=== PATIENT | male | born 1955 | race Caucasian/White ===

== ENCOUNTER 2022-03-16 21:31 | Inpatient (IN) | payer OTHER ==
[~2022-03-16] VITALS: Ht 167.6 cm; Wt 46.3 kg
[2022-03-16 22:02] VITALS: BP_SYST 171
[2022-03-17] LABS: BASOPHILS % (AUTO) 0.3 % (0.0-2.0); EOSINOPHILS # (AUTO) 0.1 K/uL (0.0-0.4); EOSINOPHILS % (AUTO) 1.4 % (0.0-4.0); HEMOGLOBIN 9.9 g/dL (14.0-18.0); LYMPHOCYTES # (AUTO) 0.8 K/uL (1.0-5.5); LYMPHOCYTES % (AUTO) 11.3 % (20.5-51.5); MEAN CORPUSCULAR HEMOGLOBIN 33 pg (27-31); MEAN CORPUSCULAR HGB CONC 35 % (32-36); MEAN CORPUSCULAR VOLUME 94 fL (79.0-98.0); MONOCYTES # (AUTO) 0.7 K/uL (0.0-1.0); MONOCYTES % (AUTO) 10.5 % (1.7-9.3); NEUTROPHILS # (AUTO) 5.2 K/uL (1.8-7.7); NEUTROPHILS % (AUTO) 76.5 % (40.0-70.0); PLATELET COUNT (AUTO) 173 K/uL (130-430); RED BLOOD CELL COUNT(AUTO) 2.99 MIL/uL (4.2-6.2); RED CELL DISTRIBUTION WIDTH 14.2 % (9.0-15.0); WHITE BLOOD COUNT (AUTO) 6.8 K/uL (4.8-10.8)
--- NOTE | 2022-03-17 01:24 | NUR ---
Patient to ER bed sim 1 to gown for evaluation. Side rails up. Report given to Melissa ORTIZ.
--- NOTE | 2022-03-17 01:55 | NUR ---
COVID 19 SWAB TEST AND INFLUENZA SWAB TEST ADMINISTERED BY CHARBEL FIERRO AND SAMPLES SENT TO LAB FOR ANALYSIS
--- NOTE | 2022-03-17 02:15 | NUR ---
Patient has AV shunt in upper right chest area and a new AV shunt was placed on left AC x8days ago. Patient arrived with 22G IV in right AC with 1000 mL NS running TKO. Nad noted at this time.
--- NOTE | 2022-03-17 02:15 | NUR ---
First contact with patient at this time. Patient A/Ox4, GCS 15, VSS, ambulatory, resp even and unlabored. Patient reports to ED from home with c/o syncope x1 and hypotension s/p dialysis treatment. Patient has AV shunt in right shoulder and a new one AV shunt was placed on left AC x8 days ago. Patient states "After I went to dialysis I went home to eat and I dont know if I got up too fast or what happend but I think I fainted." Patient is a fluent Ukrainian speaker and understands Montenegrin but speaks few words in Montenegrin. Patient lying in bed with safety precautions in place. ER MD Chow notified
[2022-03-17 02:19] LABS: CHLORIDE 97 mmol/L (98-107)
[2022-03-17 02:20] LABS: ANION GAP 8 (5-15); CALCIUM 9.7 mg/dL (8.4-11.0); CREATININE 5.18 mg/dL (0.55-1.30); GFR AFRICAN AMERICAN 14 mL/min (>90); GLUCOSE 103 mg/dL (70-99); TOTAL BILIRUBIN 0.4 mg/dL (0.0-1.0); UREA NITROGEN, BLOOD 40 mg/dL (8-21)
--- NOTE | 2022-03-17 02:20 | NUR ---
KIKI Chow at bedside.
[2022-03-17 02:21] LABS: ALANINE AMINOTRANSFERASE 28 U/L (12-78); ALBUMIN 2.8 g/dL (3.4-4.8); ASPARTATE AMINOTRANSFERASE 43 U/L (10-37)
--- NOTE | 2022-03-17 02:43 | NUR ---
TROPONIN = 13,014. DR. HANNAH AWARE. Addendum: 03/17/22 at 0552 by SDEDVT Patient Troponin level is 1,314 verified per Fannie from Lab; ER MD Chow made aware.
--- NOTE | 2022-03-17 03:00 | NUR ---
Patient sleeping in bed with safety precautions in place.
--- NOTE | 2022-03-17 05:28 | NUR ---
Received call from Kendra nurse pillowcase cleaner from [employer]. Nurse manager transport wanted an update on patient.
--- NOTE | 2022-03-17 05:31 | NUR ---
Admit bed requested Patient will be admitted to care of Dr.A. AGUILLON. Admitted to TELE unit. Diagnosis HYPOTENSION,ELEVATED TROP Inpatient (Yes or No) YES Observation (Yes or No) NO Orientation concerns or request close to nursing station (Yes or No) NO Covid Status POSITIVE On vent or bipap NO Isolation requirements NO Needs a sitter NO From Home (Yes or if No enter name of facility) YES Requires Dialysis (Yes or No) N Med Rec Completed (Yes of No) PENDING
--- NOTE | 2022-03-17 05:50 | NUR ---
Medication list provided by patient.
[2022-03-17] MEDS ORDERED: AMLO5TAB4 PO (06:04)
[2022-03-17] MEDS ORDERED: METO25TA6 PO (06:04)
--- NOTE | 2022-03-17 06:05 | NUR ---
Patient resting comfortably in bed with safety precautions in place.
--- NOTE | 2022-03-17 07:17 | NUR ---
Report given to DIANA Beyer to assume care of patient at this time.
--- NOTE | 2022-03-17 07:24 | NUR ---
Received report from DIANA Torres. Patient appears in no acute distress at this time, VSS. Care to be given as ordered by provider.
--- NOTE | 2022-03-17 13:55 | NUR ---
patient assisted to the bathroom.
--- NOTE | 2022-03-17 13:59 | NUR ---
Patient will be admitted to care of Dr. Cross. Admitted to MST unit. Will go to room 133A. Belongings list completed. Complete and up to date summary report printed. SBAR report to be given at bedside with opportunity for questions. Addendum: 03/17/22 at 1829 by [email or web address] Room 134B
--- NOTE | 2022-03-17 14:00 | NUR ---
RECEIVED BEDSIDE SBAR FROM ER NURSE , PATIENT STABLE NO DISTRESS CALL LIGHT IN REACH BED AT LOW POSITION WILL CONT TO MONITOR PATEN PER ORDERS
[2022-03-17 14:21] VITALS: BP_SYST 157
[2022-03-17] MEDS ORDERED: amLODIPine BESYLATE 5 MG TABLET PO ONE (17:30)
[2022-03-17] MEDS ORDERED: METOPROLOL SUCCINATE 25 MG TAB.SR.24H (TOPROL XL) PO ONE (17:30)
--- NOTE | 2022-03-17 18:47 | NUR ---
CLOSING NOTES PATIENT REMAINS STABLE NO DISTRESS, CALL LIGHT IN REACH BED AT LOW POSITION WILL GIVE PM ADJUNCT PHILOSOPHY FACULTY NURSE BEDSIDE SBAR
--- NOTE | 2022-03-17 19:30 | NUR ---
Received report from AM shift ROTARY SCREEN PRINTING MACHINE OPERATOR, and assumed patient care.
[2022-03-17 20:00] VITALS: BP_SYST 157
--- NOTE | 2022-03-17 20:40 | NUR ---
Educated the patient about the upcoming plan of care, the use of call light, and patient understood the teaching and has no further questions noted at the moment. Will reinforce if needed throughout the shift.
--- NOTE | 2022-03-18 00:15 | NUR ---
Patient is found in bed asleep, call light is within range, and bed is in lowest position. Will reinforce if needed throughout the shift.
[2022-03-18 00:26] VITALS: BP_SYST 174
--- NOTE | 2022-03-18 04:15 | NUR ---
Patient was found in bed asleep, call light is within reach, ad bed is in lowest position. Will reinforce if needed throughout the shift.
[2022-03-18 08:00] VITALS: BP_SYST 185
[2022-03-18] MEDS ORDERED: METOPROLOL SUCCINATE 25 MG TAB.SR.24H (TOPROL XL) PO SCH (09:00)
[2022-03-18] MEDS ORDERED: HYDROcodone/ACETAMIN 10-325 MG TAB PO PRN (11:45)
[2022-03-18] MEDS ORDERED: HYDROcodone/ACETAMIN 5-325 MG TAB (NORCO/ VICODIN) PO PRN (11:45)
[2022-03-18] MEDS ORDERED: amLODIPine BESYLATE 5 MG TABLET PO ONE (11:45)
[2022-03-18] MEDS ORDERED: NALOXONE HCL 0.4 MG/ML AMP (NARCAN) IVP PRN ×2 (11:45)
[2022-03-18] MEDS ORDERED: ONDANSETRON HCL 4 MG/2 ML VIAL IVP PRN (11:45)
[2022-03-18] MEDS ORDERED: ACETAMINOPHEN 325 MG TABLET PO PRN ×2 (11:45→12:00)
[2022-03-18 12:00] VITALS: BP_SYST 169
[2022-03-18] MEDS ORDERED: AZITHROMYCIN 500 MG in NS 250 ML IV SCH (13:00)
[2022-03-18] MEDS ORDERED: cefTRIAXone 1 GM IVPB PREMIX 50 ML IV SCH (14:00)
[2022-03-18] MEDS: NORMAL SALINE 5 ML DISP.SYRIN IVF SCH ×2 (14:00)
[2022-03-18 16:00] VITALS: BP_SYST 170
[2022-03-18] MEDS ORDERED: METOPROLOL SUCCINATE 25 MG TAB.SR.24H (TOPROL XL) PO ONE (16:00)
--- NOTE | 2022-03-18 16:07 | NUR ---
CONSULT ID RALPH MANCILLA [phone] S/W [facility]
--- NOTE | 2022-03-18 16:09 | NUR ---
CONSULT NEPHROLOGY ESRD DR SHEPHERD [phone] S/W [facility]
[2022-03-18] MEDS ORDERED: HEPARIN SODIUM,PORCINE 5,000 UNITS/ML VIAL MC ONE (19:45)
[2022-03-18 20:00] VITALS: BP_SYST 178
[2022-03-18 21:15] VITALS: BP_SYST 165
--- NOTE | 2022-03-18 21:34 | NUR ---
FIRER PORTABLE BOILER GIVEN TWO HEPARIN VIALS ASKED FOR AND WAS ADMINISTERED BY HD RN.
[2022-03-19] VITALS: BP_SYST 130
[2022-03-19] MEDS: NORMAL SALINE 5 ML DISP.SYRIN IVF SCH ×4 (06:07→06:09)
--- NOTE | 2022-03-19 06:50 | NUR ---
GISELA, LAST NIGHT TELE MONITOR ENDORSED THAT DIANA ROMERO HAD BEEN NOTIFIED THAT PT IS OFF MONITOR. I AGAIN NOTIFIED HIM THAT MONITOR NEEDS BATTERY CHANGE.
--- NOTE | 2022-03-19 07:51 | NUR ---
PT REFUSED AM LABS B/C "I'M ANEMIC. EVERY TIME I HAVE BLOOD DRAWN I FEEL BAD." PT REFUSED S/TH FOR REDUCING HIS ANEMIA. PT ALSO C/O HTN AND " ONLY GAVE ME TWO MEDS." PT WAS GIVEN ANTI HTN MEDS DURING NOC SHIFT AND EFFECTIVE. PT STILL REFUSES BLOOD DRAW AND WANTS TO GO HOME. ENDORSED TO DAY RN.
--- NOTE | 2022-03-19 08:00 | NUR ---
PATIENT SITTING AT EDGE OF BED. REFUSED MORNING LAB DRAWS STATING HE IS ANEMIC AND THIS MAKES IT WORSE. BED LOCKED AT LOWEST POSITION, SIDE RAILS UP, CALL LIGHT WITHIN REACH. WILL CONTINUE TO MONITOR.
[2022-03-19] MEDS ORDERED: amLODIPine BESYLATE 5 MG TABLET PO SCH (09:00)
--- NOTE | 2022-03-19 09:00 | NUR ---
PATIENT CAME OUT OF ROOM AND STATED HE WANTS TO SIGN THE PAPER SO HE CAN LEAVE OR HE WILL JUST WALK OUT. NURSE EXPLAINED TO PATIENT RISKS AND CONSEQUENCES OF LEAVING AGAINST [facility]. PATIENT VERBALIZED UNDERSTANDING BUT CONTINUE TO INSIST ON LEAVING HOSPITAL. NURSE INFORMED PATIENT TO COME BACK TO THE HOSPITAL OR GET TO NEAREST EMERGENCY ROOM IF HE EXPERIENCES ANY DIFFICULTY BREATHING, OR GETS WORSE. PATIENT VERBALIZED UNDERSTANDING. PATIENT SIGNED AMA PAPER AND ID BAND AND IV REMOVED. ALL BELONGINGS WITH PATIENT.
--- NOTE | 2022-03-19 09:15 | NUR ---
MADE SEAMAN AWARE OF AMA. TELE MONITOR RETURNED TO CLIENT SERVICES ASSISTANT.
--- NOTE | 2022-03-19 09:30 | NUR ---
PAGED DR PEREZ TO INFORM OF AMA. AWAITING CALL BACK.
--- NOTE | 2022-03-19 10:00 | NUR ---
DR PEREZ ON UNIT. MADE DR PEREZ AWARE PATIENT LEFT AMA. DOCTOR VERBALIZED UNDERSTANDING.
[2022-03-19] MEDS ORDERED: CHOLECALCIFEROL (VITAMIN D3) 5,000 UNIT TABLET PO ONE (12:00)
[2022-03-19] MEDS ORDERED: OSELTAMIVIR PHOSPHATE 6 MG/1 ML, 60 ML SUSP PO SCH (12:00)
[2022-03-19] MEDS ORDERED: *HEPARIN PER PHARMACY XX ONE (12:00)
[2022-03-19] MEDS ORDERED: ASCORBIC ACID 500 MG TABLET PO ONE (12:30)
[2022-03-20] MEDS ORDERED: ASCORBIC ACID 500 MG TABLET PO SCH (09:00)
== END 2022-03-19 09:15 | disposition left against medical advice (07) | DRG 640 ==
LOC: SED 21:31 → STU 03-17 05:28
PROVIDERS: ADMIT Preventive Medicine Preventive Medicine/Occupational Environmental Medicine; ATTEND Preventive Medicine Preventive Medicine/Occupational Environmental Medicine
PROC: 5A1D70Z Performance of Urinary Filtration, Intermittent, Less than 6 Hours Per Day (ICD-10-PCS; principal; 2022-03-18)
DX: E87.6 Hypokalemia (principal); N18.6 End stage renal disease; U07.1 COVID-19; I12.0 Hypertensive chronic kidney disease with stage 5 chronic kidney disease or end stage renal disease; E44.0 Moderate protein-calorie malnutrition; E87.8 Other disorders of electrolyte and fluid balance, not elsewhere classified; E87.1 Hypo-osmolality and hyponatremia; D63.1 Anemia in chronic kidney disease; E88.09 Other disorders of plasma-protein metabolism, not elsewhere classified; R74.01 Elevation of levels of liver transaminase levels; R73.9 Hyperglycemia, unspecified; Z99.2 Dependence on renal dialysis
CPT/HCPCS: 36415; 71045; 80053; 83735; 83880; 84132; 84484; 85025; 90935; 93005; 93306; 99291; 99292; G0378; G9035; J0456; J0696; J1644; J7030; J7050